=== PATIENT | female | born 1960 | race Caucasian/White ===

== ENCOUNTER 2022-08-22 12:34 | Outpatient (CLI) | payer BC | END 2022-08-22 12:35 | disposition home or self-care (01) | LOC: BICMRI 12:34 | PROVIDERS: ATTEND Family Medicine | DX: M47.816 Spondylosis without myelopathy or radiculopathy, lumbar region (principal); M43.16 Spondylolisthesis, lumbar region; M47.817 Spondylosis without myelopathy or radiculopathy, lumbosacral region; M47.814 Spondylosis without myelopathy or radiculopathy, thoracic region; M47.815 Spondylosis without myelopathy or radiculopathy, thoracolumbar region | CPT/HCPCS: 72100; 72148 ==